=== PATIENT | female | born 1945 | race Two or more races ===

== ENCOUNTER 2018-12-02 13:57 | Outpatient (CLI) | payer OTHER ==
[2018-12-02] MEDS ORDERED: HUMALOG100 UNIT/1 SQ (16:35)
[2018-12-02] MEDS ORDERED: LANTUS SOL100 UNIT/1 SUBCUTANEO (16:35)
[2018-12-02] MEDS ORDERED: GABAPENTIN800 MG PO (16:36)
[2018-12-02] MEDS ORDERED: AMLODIPINE BESYL5 MG PO (16:36)
[2018-12-02] MEDS ORDERED: LIPITOR40 MG PO (16:36)
[2018-12-02] MEDS ORDERED: COZAAR100 MG PO (16:36)
[2018-12-02] MEDS ORDERED: TRAMADOL HCL50 MG PO (16:36)
[2018-12-02] MEDS ORDERED: CALTRATE 600 +1 EACH PO (16:37)
[2018-12-02] MEDS ORDERED: MAGNESIUM500 MG PO (16:37)
== END 2018-12-02 14:13 | disposition home or self-care (01) ==
LOC: EKG 13:57
DX: I10 Essential (primary) hypertension (principal)

== ENCOUNTER 2018-12-02 16:41 | Inpatient (IN) | payer OTHER ==
[~2018-12-02] VITALS: Ht 157.5 cm; Wt 84.4 kg
[~2018-12-02 16:41] MED LIST: AMLODIPINE BESYL5 MG PO; CALTRATE 600 +1 EACH PO; COZAAR100 MG PO; GABAPENTIN800 MG PO; HUMALOG100 UNIT/1 SQ; LANTUS SOL100 UNIT/1 SUBCUTANEO; LIPITOR40 MG PO; MAGNESIUM500 MG PO; TRAMADOL HCL50 MG PO
== END 2018-12-13 19:36 | disposition home or self-care (01) | DRG 331 ==
LOC: O/R 12-10 09:25 → SURG 12-10 09:25 → SURH 12-10 15:39 → SURG 12-10 17:07 → SURH 12-10 17:30 → SURG 12-13 19:36
PROVIDERS: ADMIT Colon & Rectal Surgery
PROC: 07TB4ZZ Resection of Mesenteric Lymphatic, Percutaneous Endoscopic Approach (ICD-10-PCS; 2018-12-10)
PROC: 0DTU4ZZ Resection of Omentum, Percutaneous Endoscopic Approach (ICD-10-PCS; 2018-12-10)
PROC: 0DTF4ZZ Resection of Right Large Intestine, Percutaneous Endoscopic Approach (ICD-10-PCS; principal; 2018-12-10 17:30)
DX: C18.3 Malignant neoplasm of hepatic flexure (principal); D12.3 Benign neoplasm of transverse colon; E11.9 Type 2 diabetes mellitus without complications; I20.8 Other forms of angina pectoris; I11.9 Hypertensive heart disease without heart failure; E78.00 Pure hypercholesterolemia, unspecified

== ENCOUNTER 2018-12-09 06:00 | Day surgery (SDC) | payer OTHER | END 2018-12-09 18:20 | disposition home or self-care (01) | LOC: AMB-ENDOS 06:00 | DX: D12.4 Benign neoplasm of descending colon (principal); K64.1 Second degree hemorrhoids ==

== ENCOUNTER 2020-01-16 08:24 | Day surgery (SDC) | payer OTHER | END 2020-01-16 12:40 | disposition home or self-care (01) | LOC: AMB-ENDOS 08:24 | PROVIDERS: ATTEND Colon & Rectal Surgery | DX: K62.89 Other specified diseases of anus and rectum (principal); K64.1 Second degree hemorrhoids; Z20.828 Contact with and (suspected) exposure to other viral communicable diseases ==